=== PATIENT | male | born 1975 | race Caucasian/White ===

== ENCOUNTER 2025-05-05 20:43 | Emergency (ER) | payer OTHER, SELFPAY ==
--- NOTE | ~2025-05-05 | XR_ITS ---
CLINICAL HISTORY: SOB 1 view chest x-ray Comparison: None provided Findings: The lungs are clear. Heart size is normal. No acute fracture. Retrocardiac air-fluid level. IMPRESSION: 1. Retrocardiac air-fluid level, possibly representing a paraesophageal hernia. 2. No acute pulmonary findings.. This document has been electronically signed by: Juan Luis Burgess MD on 05/05/2025 22:46:32
--- NOTE | 2025-05-05 20:52 | ED.GENADULT ---
HPI - General Adult General Chief complaint: General Medical Stated complaint: mult insect bites,sob ,blurry vision Time Seen by Provider: 05/05/25 21:22 Source: patient Mode of arrival: ambulatory Limitations: no limitations History of Present Illness ED Provider: Dr. Velma Wilson HPI narrative: patient comes to the emergency room complaining of cough and shortness of breath for about a week. Patient also complaining of 1 month of rash /lesions in the skin. Patient states that he has been coughing quite a bit, G very green. Patient reports that he has not seen any blood in the sputum but he has a metallic taste in his mouth after coughing. Patient admits to smoking, has no history of diagnosed asthma or COPD. My triage noted that when the patient came in walking, his oxygen saturation was 86%. Patient denied any significant shortness of breath which has been. Patient states that approximately 3-4 weeks ago, he was doing some cleaning, and he inhaled dust and mouse droppings Related Data Allergies Allergy/AdvReac Type Severity Reaction Status Date / Time albuterol Allergy Chest Pain Verified 05/05/25 21:17 cyclobenzaprine (From Allergy Headache Verified 05/05/25 21:17 Flexeril) morphine Allergy Itching Verified 05/05/25 21:17 Review of Systems Review of Systems: Constitutional : No Weight loss, No Fever, No Chills, No Night Sweats, No Fatigue, No Malaise ENT/Mouth : No Hearing loss, No Ear Pain, No Nasal Congestion, No Sinus Pain, No Hoarseness, No sore throat, No Rhinorrhea, No Swallowing Difficulty Eyes: No Eye Pain, No Swelling, No Redness, No Foreign Body, No Discharge, No Vision Changes Cardiovascular : No Chest Pain, No SOB, No Dyspnea on Exertion, No Orthopnea, No Edema, No Palpitations Respiratory : complaining of cough, wheezing and shortness of breath Gastrointestinal : No Nausea, No Vomiting, No Diarrhea, No Constipation, No abdominal Pain, No Hematochezia, No Melena Genitourinary : no irregular bleeding, No Dysuria, No Urinary Frequency, No Hematuria, No Urinary Incontinence, No Urgency, No Flank Pain, No Urinary Flow Changes, No Hesitancy Musculoskeletal : No joint pain, No Myalgias, No Joint Swelling Skin : No Skin Lesions, No rash Neuro : No Weakness, No Numbness, No Paresthesias, No Loss of Consciousness, No Dizziness, No Headache Psych : No Anxiety/Panic, No Depression, No SI/HI/AH/VH, No Social Issues, Heme/Lymph: No Bruising, No Bleeding,No Lymphadenopathy Endocrine : No Polyuria, No Polydipsia, No Temperature Intolerance [facility] Past Medical History Medical History (Updated 05/05/25 @ 23:34 by Velma Wilson MD) Kidney laceration Spleen laceration Social History Social History Smoked in Last 30 Days: Yes Use of substances other than those prescribed or required for medical reasons: No Advance Directives: No Advance Directives Information Provided: No Do you have a plan to hurt others: No Plan Physical Exam ED Exam Exam: Appearance: Alert. Oriented X3. No acute distress. Eyes: Pupils equal, round and reactive to light. ENT: Pharynx normal. Neck: Normal inspection. Neck supple. No lymph nodes noted. No crepitus CVS: Normal heart rate and rhythm. Pulses normal. Normal S1 and S2 Respiratory: No respiratory distress. bilateral rales and crackles, no wheezing Abdomen: Soft and nontender. No rigidity. No distention. Skin: Skin warm and dry. Normal skin color. Normal skin turgor. various eschar throughout the patient's body, seems that he has been picking his skin Extremities: No lower extremity edema. No Lacerations. No Rash Neuro: Oriented X 3. No motor deficit. No sensory deficit. Moving all extremities. No slurred speech. CN 2 through 12 grossly intact Psych: calm, cooperative, normal affect Vital Signs: Vital Signs - 24 hr 05/05/25 21:11 05/05/25 22:55 Temperature 98.3 F 98.0 F Pulse Rate 89 77 Respiratory Rate 21 H 16 Blood Pressure 136/74 98/51 L Pulse Oximetry 89 L 92 Oxygen Delivery Method Room Air Room Air BMI result Body Mass Index 22.8 Course Course Course Narrative: per triage nurse, patient's oxygen saturation was 86% on room air on arrival. At this time, 91% on room air at bedside all of patient's labs and imaging pending. I discussed with the patient that given that his oxygen drops to 86% with minimal exertion and he has not oxygen dependent, after a workup is complete, he will likely need to stay in the hospital. Medical Decision Making Medical Decision Making MDM Narrative: I was informed by the patient's nurse, the patient did not want to stay for the labs to return or his images and wanted to leave against medical advice. when I went to speak to the patient to try to convinced to get him to stay in the hospital or at least to finish up the workup and wait for labs, patient had already eloped. after the patient left, labs returned, no significant abnormality in patient's hematology or chemistry, troponin negative urinalysis negative, COVID and influenza negative chest x-ray: Retrocardiac air-fluid levels possible paraesophageal hernia patient will likely need a CT scan. As mentioned above, oxygen saturation was initially after short ambulation 86% when patient arrived, while sitting in bed without oxygen, 90% Differential Diagnosis Differential Diagnoses: The differential diagnosis associated with the presentation includes ( Pneumonia, viral pneumonitis, pulmonary embolism) Lab Data 05/05/25 21:41 05/05/25 21:41 Labs: Lab Results 05/05/25 05/05/25 Range/Units 21:41 21:55 WBC 7.0 (4.8-10.8) X10*3/uL RBC 4.48 L (4.60-5.80) X10*6/uL Hgb 13.1 L (14.0-18.0) g/dl Hct 38.3 L (42.0-52.0) % MCV 85.5 (80.0-98.0) fL MCH 29.2 (27.0-33.0) pg MCHC 34.2 (31.0-36.0) g/dl RDW 13.3 (11.0-16.0) % Plt Count 257 (160-400) X10*3/uL MPV 8.6 L (9.4-12.4) fL Immature Gran % (Auto) 0.1 (0.0-0.4) % Neut % (Auto) 53.2 (45-73) % Lymph % (Auto) 29.2 (20-40) % [place] % (Auto) 7.9 (2-11) % Eos % (Auto) 8.9 H (0-4) % Baso % (Auto) 0.7 (0-2) % Lymph # (Auto) 2.0 (1.2-4.9) X10*3/uL [place] # (Auto) 0.6 (0.1-1.2) X10*3/uL Eos # (Auto) 0.6 H (0.0-0.4) X10*3/uL Baso # (Auto) 0.1 (0.0-0.2) X10*3/uL Abs Immat Gran (auto) 0.01 (0.00-0.03) X10*3/uL Absolute Neuts (auto) 3.7 (2.0-8.3) x10*3/uL Absolute Nucleated RBC 0.000 (0.0-0.012) X10*3/uL Nucleated RBC % (auto) 0.0 (0.0-0.2) /100WBC Sodium 142 (135-145) mmol/L Potassium 4.0 (3.3-5.1) mmol/L Chloride 107 (96-108) mmol/L Carbon Dioxide 29 (22-29) mmol/L Anion Gap 10 L (12-20) BUN 16 (9-16) mg/dL Creatinine 0.81 (0.5-1.4) mg/dL Estim Creat Clear Calc 118.1 Estimated GFR > 60 Random Glucose 117 H (60-115) mg/dL Calcium 8.7 (8.4-10.2) mg/dL Magnesium 2.0 (1.6-2.6) mg/dL Total Bilirubin 0.3 (0.0-1.0) mg/dL AST 25 (5-37) U/L ALT 17 (0-40) U/L Alkaline Phosphatase 52 (39-117) U/L Troponin I High Sens < 2.7 (<3.5-35.0) ng/L Total Protein 6.5 (6.5-8.0) g/dL Albumin 4.3 (3.5-5.0) g/dL Urine Color Yellow Urine Appearance Clear Urine pH 6.5 (5.0-9.0) Ur Specific [place] 1.020 (1.005-1.025) Urine Protein Negative (Neg-Trace) mg/dL Urine Glucose (UA) Negative (Negative) mg/dL Urine Ketones Negative (Negative) mg/dL Urine Blood Negative (Negative) Urine Nitrite Negative (Negative) Ur Leukocyte Esterase Negative (Negative) Urine RBC 0-2 (0-2) /HPF Urine WBC 0-5 (0-5) /HPF Ur Squamous Epith Cells 0-2 (0-2) /HPF Urine Bacteria None Seen (None Seen) Hyaline Casts 0-2 (0-2) /LPF Influenza Type A (PCR) NEGATIVE (Negative) Influenza Type B (PCR) NEGATIVE (Negative) RSV RNA Qual (PCR) NEGATIVE (Negative) SARS-CoV-2 RNA (RT-PCR) NEGATIVE (Negative) Discharge Plan Discharge Clinical Impression: Hypoxia, Dyspnea Patient Disposition: Elopement Discharge Date/Time: 05/05/25 23:33 Print Language: Latvian
[2025-05-05 21:11] VITALS: BP 136/74; PULSE 89; RESP 21; TEMP 36.8; O2SAT 89; BMI 22.8
--- NOTE | 2025-05-05 21:18 | ECG_ITS ---
Test Reason : SOB Blood Pressure : */* mmHG Vent. Rate : 87 BPM Atrial Rate : 87 BPM P-R Int : 122 ms QRS Dur : 100 ms QT Int : 360 ms P-R-T Axes : 20 68 38 degrees QTcB Int : 433 ms Sinus rhythm with Premature atrial complexes Cannot rule out Anterior infarct , age undetermined Abnormal ECG No previous ECGs available Referred By: Generic ED Physician Electronically Signed By: Finn Church
[2025-05-05 22:03] LABS: Hematocrit 38.3 % (42.0-52.0); Hemoglobin 13.1 g/dl (14.0-18.0); Imm Gran Abs Auto 0.01 X10*3/uL (0.00-0.03); Imm Gran Pct Auto 0.1 % (0.0-0.4); Lymphocytes Absolute Auto 2.0 X10*3/uL (1.2-4.9); MANUAL DIFF FLAG NO; Mean Corpuscular HGB Conc 34.2 g/dl (31.0-36.0); Mean Corpuscular Hemoglobin 29.2 pg (27.0-33.0); Mean Corpuscular Volume 85.5 fL (80.0-98.0); NRBC Abs Auto 0.000 X10*3/uL (0.0-0.012); NRBC Pct Auto 0.0 /100WBC (0.0-0.2); Platelet Count 257 X10*3/uL (160-400); Red Blood Count 4.48 X10*6/uL (4.60-5.80); White Blood Count 7.0 X10*3/uL (4.8-10.8)
[2025-05-05 22:04] LABS: Appearance Urine Clear; Glucose Urine UA Negative (Negative); PH 6.5 (5.0-9.0); Specific Gravity - Urine 1.020 (1.005-1.025)
[2025-05-05 22:18] LABS: Alanine Aminotransferase 17 U/L (0-40); Albumin Level 4.3 g/dL (3.5-5.0); Alkaline Phosphatase 52 U/L (39-117); Anion Gap 10 (12-20); Aspartate Amino Transferase 25 U/L (5-37); Blood Urea Nitrogen 16 mg/dL (9-16); Calcium 8.7 mg/dL (8.4-10.2); Carbon Dioxide 29 mmol/L (22-29); Chloride 107 mmol/L (96-108); Creatinine Clr Calc Pharmacy 118.1; Estimated Glomerular Filt Rate > 60; Magnesium 2.0 mg/dL (1.6-2.6); Potassium 4.0 mmol/L (3.3-5.1); Sodium 142 mmol/L (135-145); Total Protein 6.5 g/dL (6.5-8.0)
--- OUTSIDE RECORDS SUMMARY | 2025-05-05 22:23 | XMS_ITS | Clinical Summary ---
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 Active METHOCARBAMOL ORAL Take 300 mg by mouth daily. Active Active Problems No known active problems Social History Tobacco Use Types Packs/Day Years Used Date Smoking Tobacco: Every Day Smokeless Tobacco: Never Education Answer Date Recorded Are you interested in more education? Not on kristen e 12/05/2022 Are you concerned about learning? Not on file 12/05/2022 No 12/05/2022 No 12/05/2022 Digital Access Answer Date Recorded No 01/03/2023 No 01/03/2023 No 01/03/2023 Reliable internet access at home? Not on file 01/03/2023 Device with a working camera? Not on file Sex and Gender Information Value Date Recorded Sex Assigned at Not on file Legal Sex Male 6:41 PM EST Gender Identity Not on file Sexual Orientation Not on file Last Filed Vital Signs Vital Sign Reading Time Taken Comments Blood Pressure 119/76 03/03/2019 11:44 AM EDT Pulse 76 03/03/2019 11:44 AM EDT Temperature - - Respiratory Rate - - Oxygen Saturation - - Inhaled Oxygen Concentration - - Weight 76.5 kg (168 lb 9.6 oz) 03/03/2019 11:44 AM EDT Height 180.3 cm (5' 10.98 ) 03/03/2019 11:44 AM EDT Body Mass Index 23.53 03/03/2019 11:44 AM EDT Plan of Treatment Health Maintenance Due Date Last Done Comments Adult Td,Tdap Booster 1977 LIPID PANEL 1977 DEPRESSION SCREENING 1989 SMOKING Hx and SMOKELESS TOB ACCO SCREENING 1990 HEPATITIS C SCREENING 1995 HIV ONE-TIME SCREENING (18-6 5 YEARS) 1995 PNEUMOCOCCAL VACCINES (0-49 years) (1 of 2 - PCV) 1996 COLOGUARD 2022 COLONOSCOPY 2022 COLORECTAL CANCER SCREENING 2022 FIT TEST 2022 FOBT 2022 SIGMOIDOSCOPY 2022 VIRTUAL COLONOSCOPY 2022 INFLUENZA VACCINE (#1) 2025 COVID-19 VACCINE ( - 2023-2 5 season) 2025 HEPATITIS A VACCINES Aged Out No long er eligible based on patient's age to complete this topic HIB VACCINES Aged Out No longer eligi ble based on patient's age to complete this topic MENINGOCOCCAL VACCINES (ACWY) Aged Out No longer eligible based on patient's age to complete this topic MENINGOCOCCAL VACCINES (B) Aged Out N o longer eligible based on patient's age to complete this topic Medical Devices Not on file Insurance HEALTH SAFETY NET FULL MEDICARE PART A & B [employer] [facility] FULL MEDICARE PART A & [place] [address] [place] [address] NET FULL MEDICARE PART A & B [employer] SAFETY NET FULL MEDICARE PART A & B [employer] SAF[employer] NET FULL MEDICARE PART A & B FULL MEDICARE PART A & B [employer] NET FULL MEDICARE PART A & B [employer] SAF[employer] NET FULL MEDICARE PART A & B MEDICARE PART A & B Care Teams 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 It is not the complete legal health record.[facility]
[2025-05-05 22:28] LABS: Troponin-I High Sensitivity < 2.7 ng/L (<3.5-35.0)
--- NOTE | 2025-05-05 22:51 | PC.NURSE ---
Assumed care of pt at 2251. Report received from DEJA Miles.
[2025-05-05 22:55] VITALS: BP 98/51; PULSE 77; RESP 16; TEMP 36.7; O2SAT 92
[2025-05-05 22:55] LABS: Resp Syncy Virus RNA Qual PCR NEGATIVE (Negative); SARS COV2 PCR INHOUSE NEGATIVE (Negative)
--- NOTE | 2025-05-05 23:08 | PC.NURSE ---
PT requesting to leave. states i cant take this shit im going crazy . Informed PT that Xray report and labs resulted so it would be best for him to talk with provider first, Educated pt on risks of leaving. Pt agreeable to waiting on provider. Provider, Dr. Wilson made aware
--- NOTE | 2025-05-05 23:28 | PC.NURSE ---
Addendum entered by Flaquita Noonan RN 05/05/25 23:41: PT listed as left without completeing treatment Original Note: Katie has returned from providing care to another PT reminded that pt was requesting to leave. Dr. lopez when to beside to talk with pt, pt not in bed, gown on bed. Pt eloped- did not inform staff.
== END 2025-05-05 23:33 | disposition left against medical advice (07) ==
PROVIDERS: Emergency Provider Emergency Medicine
DX: R09.02 Hypoxemia (principal); R06.02 Shortness of breath; R94.31 Abnormal electrocardiogram [ECG] [EKG]; Z03.818 Encounter for observation for suspected exposure to other biological agents ruled out; Z79.899 Other long term (current) drug therapy
CPT/HCPCS: 71045; 80053; 81001; 83735; 84484; 85025; 87637; 93005; 99283; 99284

== ENCOUNTER → 2025-05-05 21:18 | Outpatient (BNV) | payer OTHER, SELFPAY | PROVIDERS: Emergency Provider Emergency Medicine; Visit Provider Radiology Diagnostic Radiology | DX: R06.02 Shortness of breath (principal) | CPT/HCPCS: 71045 ==

== ENCOUNTER → 2025-05-05 21:18 | Outpatient (BNV) | payer OTHER, SELFPAY | PROVIDERS: Emergency Provider Emergency Medicine; Visit Provider Internal Medicine Cardiovascular Disease | DX: I49.1 Atrial premature depolarization (principal) | CPT/HCPCS: 93010 ==